=== PATIENT | female | born 1970 | race Two or more races ===

== ENCOUNTER 2017-06-29 17:56 | Emergency (ER) | payer BC, OTHER ==
[~2017-06-29] VITALS: Ht 149.9 cm; Wt 57.0 kg
[~2017-06-29 17:56] MED LIST: LOSA25TA5 PO
[2017-06-29 18:02] VITALS: BP 151/88
[2017-06-29] MEDS ORDERED: KETOROLAC 30 MG/1 ML ONE (19:27)
[2017-06-29] MEDS ORDERED: DIAZEPAM 5 MG TABLET ONE (19:27)
[2017-06-29] MEDS ORDERED: KETOROLAC 30 MG/1 ML IM ONE (19:30)
[2017-06-29] MEDS ORDERED: DIAZEPAM 5 MG TABLET PO ONE (19:30)
[2017-06-29] MEDS ORDERED: IBUPROFEN 200 MG TABLET PO ONE (20:00)
[2017-06-29] MEDS ORDERED: IBUPROFEN 200 MG TABLET ONE (20:36)
== END 2017-06-29 21:04 | disposition home or self-care (01) ==
LOC: ED 19:19
DX: S16.1XXA Strain of muscle, fascia and tendon at neck level, initial encounter (principal); J30.2 Other seasonal allergic rhinitis; X50.1XXA Overexertion from prolonged static or awkward postures, initial encounter; Y93.H1 Activity, digging, shoveling and raking; Y92.89 Other specified places as the place of occurrence of the external cause; Y99.8 Other external cause status
CPT/HCPCS: 93005; 99283

== ENCOUNTER → 2018-04-24 | Outpatient (CLI) | payer BC | END | disposition home or self-care (01) | LOC: RAD 16:55 | PROVIDERS: ATTEND Nurse Practitioner Family | DX: R10.2 Pelvic and perineal pain (principal) | CPT/HCPCS: 74018 ==

== ENCOUNTER 2018-06-14 05:21 | Emergency (ER) | payer BC ==
[~2018-06-14] VITALS: Ht 149.9 cm; Wt 57.4 kg
[~2018-06-14 05:21] MED LIST changes: -LOSA25TA5 PO; +LOSA25TA6 PO
[2018-06-14] MEDS ORDERED: ONDANSETRON ODT 4 MG ONE (06:00)
[2018-06-14] MEDS ORDERED: ACETAMINOPHEN 325 MG TABLET ONE (06:00)
[2018-06-14] MEDS ORDERED: ONDANSETRON ODT 4 MG PO ONE (06:00)
[2018-06-14] MEDS ORDERED: ACETAMINOPHEN 325 MG TABLET PO ONE (06:00)
[2018-06-14 06:15] LABS: BASOPHILS # (AUTO) 0.02 x10^3/uL (0-0.1); BASOPHILS % (AUTO) 0 % (0-1); EOSINOPHILS # (AUTO) 0.24 x10^3/uL (0-0.4); EOSINOPHILS % (AUTO) 3 % (1-7); LYMPHOCYTES % (AUTO) 26 % (22-44); MD NO; MEAN CORPUSCULAR HEMOGLOBIN 27.6 pg (27.0-34.8); MEAN CORPUSCULAR HGB CONC 33.9 g/dL (32.4-35.8); MEAN CORPUSCULAR VOLUME 81.3 fL (80-100); MONOCYTES # (AUTO) 0.64 x10^3/uL (0.2-0.8); MONOCYTES % (AUTO) 7 % (2-9); NEUTROPHILS # (AUTO) 6.06 x10^3/uL (1.8-6.8); NEUTROPHILS % (AUTO) 65 % (42-75); PLATELET COUNT 266 x10^3/uL (130-400); RED BLOOD COUNT 4.42 x10^6/uL (3.82-5.3); RED CELL DISTRIBUTION WIDTH 13.9 % (9.6-15.2)
[2018-06-14 06:26] LABS: ALANINE AMINOTRANSFERASE 30 U/L (12-78); ALBUMIN 3.9 g/dL (3.4-5.0); ANION GAP 9 mmol/L (5-15); CALCIUM 8.8 mg/dL (8.5-10.1); CHLORIDE 109 mmol/L (98-107); CREATININE 0.67 mg/dL (0.55-1.02)
[2018-06-14 06:31] LABS: ALKALINE PHOSPHATASE 101 U/L (45-117); BILIRUBIN,TOTAL 0.4 mg/dL (0.2-1.0); TOTAL PROTEIN 7.9 g/dL (6.4-8.2)
[2018-06-14 07:52] LABS: MICROSCOPIC INDICATED
[2018-06-14 08:02] LABS: CULTURE INDICATED? YES
[2018-06-14 08:10] VITALS: BP 108/57
== END 2018-06-14 08:38 | disposition home or self-care (01) ==
LOC: ED 08:15
DX: D25.9 Leiomyoma of uterus, unspecified (principal); J30.2 Other seasonal allergic rhinitis
CPT/HCPCS: 36415; 71046; 76830; 80053; 81001; 84703; 85025; 87086; 93005; 99285; Q0162

== ENCOUNTER 2019-02-19 15:53 | Emergency (ER) | payer BC ==
[~2019-02-19] VITALS: Ht 149.9 cm; Wt 57.7 kg
[~2019-02-19 15:53] MED LIST changes: +LOSA25TA25 PO; -LOSA25TA6 PO
--- NOTE | 2019-02-19 16:16 | NUR ---
PATIENT PRESENTS TO ED TODAY FOR FACIAL SWELLING, NAUSEA, BURNING CHEST PAINRADIATING TO LEFT ARM, AND "ITCHING" STARTING TODAY AT 1200, NADN. REPORTS STARTING AMLODIPINE 1.5 WEEKS AGO AND HAS BEEN DIZZY SINCE. ADVERTISING DISPLAY ROTATOR ON PATIENT, MD AT BEDSIDE, AWAITING ORDERS, CALL LIGHT WITHIN REACH.
[2019-02-19] MEDS ORDERED: LORA-439 PO (16:22)
[2019-02-19] MEDS ORDERED: AMLO10TA8 PO (16:22)
--- NOTE | 2019-02-19 16:24 | NUR ---
XRAY AT BEDSIDE.
[2019-02-19] MEDS ORDERED: DIPHENHYDRAMINE 25 MG CAPSULE ONE (16:29)
[2019-02-19] MEDS ORDERED: ASPIRIN 81 MG TABLET CHEW ONE (16:29)
[2019-02-19] MEDS ORDERED: ASPIRIN 81 MG TABLET CHEW PO ONE (16:30)
[2019-02-19] MEDS ORDERED: DIPHENHYDRAMINE 25 MG CAPSULE PO ONE (16:30)
[2019-02-19 16:36] LABS: BASOPHILS # (AUTO) 0.03 x10^3/uL (0-0.1); BASOPHILS % (AUTO) 0 % (0-1); EOSINOPHILS # (AUTO) 0.05 x10^3/uL (0-0.4); EOSINOPHILS % (AUTO) 1 % (1-7); LYMPHOCYTES % (AUTO) 25 % (22-44); MD NO; MEAN CORPUSCULAR HEMOGLOBIN 26.2 pg (27.0-34.8); MEAN CORPUSCULAR HGB CONC 32.4 g/dL (32.4-35.8); MEAN CORPUSCULAR VOLUME 80.7 fL (80-100); MEAN PLATELET VOLUME 8.7 fL (7.4-10.4); MONOCYTES # (AUTO) 0.66 x10^3/uL (0.2-0.8); MONOCYTES % (AUTO) 8 % (2-9); NEUTROPHILS # (AUTO) 5.35 x10^3/uL (1.8-6.8); NEUTROPHILS % (AUTO) 66 % (42-75); PLATELET COUNT 292 x10^3/uL (130-400); RED BLOOD COUNT 4.31 x10^6/uL (3.82-5.3); RED CELL DISTRIBUTION WIDTH 15.5 % (9.6-15.2)
[2019-02-19 16:46] LABS: ALANINE AMINOTRANSFERASE 61 U/L (12-78); ALBUMIN 3.9 g/dL (3.4-5.0); ANION GAP 7 mmol/L (5-15); CALCIUM 8.5 mg/dL (8.5-10.1); CHLORIDE 104 mmol/L (98-107); CREATININE 0.96 mg/dL (0.55-1.02)
[2019-02-19 16:51] LABS: ALKALINE PHOSPHATASE 122 U/L (45-117); BILIRUBIN,TOTAL 0.3 mg/dL (0.2-1.0); TOTAL PROTEIN 7.9 g/dL (6.4-8.2); TROPONIN I < 0.015 ng/mL (0.000-0.045)
--- NOTE | 2019-02-19 16:56 | NUR ---
RESULTS BACK, CHART UP FOR RECHECK.
--- NOTE | 2019-02-19 18:32 | NUR ---
Patient/Caregiver given discharge instructions and they have confirmed that they understand the instructions. Patient ambulatory with steady gait.
[2019-02-19 18:33] VITALS: BP 111/69
== END 2019-02-19 18:34 | disposition home or self-care (01) ==
LOC: ED 16:31
DX: R07.89 Other chest pain (principal); T46.1X5A Adverse effect of calcium-channel blockers, initial encounter; I10 Essential (primary) hypertension; Y92.89 Other specified places as the place of occurrence of the external cause
CPT/HCPCS: 36415; 71045; 80053; 84484; 84703; 85025; 93005; 99284; Q0163

== ENCOUNTER 2019-07-20 10:43 | Outpatient (CLI) | payer BC ==
[~2019-07-20 10:43] MED LIST changes: +AMLO10TA8 PO; +LORA-439 PO
[2019-07-20] MEDS ORDERED: HYDROCHLOROTH12.5 MG PO (12:00)
[2019-07-20] MEDS ORDERED: IRON PO (12:00)
[2019-07-20] MEDS ORDERED: IBUPROFEN PO (12:00)
[2019-07-20] MEDS ORDERED: CODEINE PO (12:00)
[2019-07-20] MEDS ORDERED: BENZ200C48 PO (12:00)
[2019-07-20] MEDS ORDERED: PROMETHAZINE PO (12:00)
[2019-07-20 12:04] LABS: BASOPHILS # (AUTO) 0.04 x10^3/uL (0-0.1); BASOPHILS % (AUTO) 1 % (0-1); EOSINOPHILS # (AUTO) 0.24 x10^3/uL (0-0.4); EOSINOPHILS % (AUTO) 4 % (1-7); LYMPHOCYTES # (AUTO) 1.96 x10^3/uL (1-3.4); LYMPHOCYTES % (AUTO) 31 % (22-44); MD NO; MEAN CORPUSCULAR HEMOGLOBIN 26.9 pg (27.0-34.8); MEAN CORPUSCULAR VOLUME 81.5 fL (80-100); MEAN PLATELET VOLUME 8.9 fL (7.4-10.4); MONOCYTES # (AUTO) 0.51 x10^3/uL (0.2-0.8); MONOCYTES % (AUTO) 8 % (2-9); NEUTROPHILS # (AUTO) 3.62 x10^3/uL (1.8-6.8); NEUTROPHILS % (AUTO) 57 % (42-75); PLATELET COUNT 281 x10^3/uL (130-400); RED BLOOD COUNT 4.69 x10^6/uL (3.82-5.3); RED CELL DISTRIBUTION WIDTH 14.8 % (9.6-15.2)
[2019-07-20 12:14] LABS: ALBUMIN 4.2 g/dL (3.4-5.0); ANION GAP 7 mmol/L (5-15); CALCIUM 8.6 mg/dL (8.5-10.1); CHLORIDE 109 mmol/L (98-107)
[2019-07-20 12:21] LABS: ALANINE AMINOTRANSFERASE 23 U/L (12-78); ALKALINE PHOSPHATASE 87 U/L (45-117); BILIRUBIN,TOTAL 0.3 mg/dL (0.2-1.0); TOTAL PROTEIN 8.4 g/dL (6.4-8.2)
== END 2019-07-20 23:59 | disposition home or self-care (01) ==
LOC: STAR 10:43
PROVIDERS: ATTEND Obstetrics & Gynecology
DX: Z01.818 Encounter for other preprocedural examination (principal); N94.6 Dysmenorrhea, unspecified; N92.0 Excessive and frequent menstruation with regular cycle; D25.9 Leiomyoma of uterus, unspecified; I44.0 Atrioventricular block, first degree
CPT/HCPCS: 36415; 80053; 84703; 85025; 93005

== ENCOUNTER 2019-07-27 10:43 | Inpatient (IN) | payer BC ==
[~2019-07-27] VITALS: Ht 149.9 cm; Wt 49.2 kg
[~2019-07-27 10:43] MED LIST changes: +BENZ200C48 PO; +CODEINE PO; +HYDROCHLOROTH12.5 MG PO; +IBUPROFEN PO; +IRON PO; +PROMETHAZINE PO
[2019-07-27] MEDS ORDERED: LACTATED RINGERS 1,000 ML IV SCH (11:09)
[2019-07-27] MEDS ORDERED: LIDOCAINE-MPF 1%, 2ML INFIL ONE (11:30)
[2019-07-27] MEDS ORDERED: MEPERIDINE/PF 25MG/ML,1ML IVPush PRN (11:30)
[2019-07-27] MEDS ORDERED: SCOPOLAMINE PATCH, 1.5MG PATCH.TD72 TD ONE (11:30)
[2019-07-27] MEDS ORDERED: HYDROcodone/APAP 7.5-325MG/15ML UDC PO PRN (11:30)
[2019-07-27] MEDS ORDERED: LABETALOL 5MG/ML, 20ML IV PRN (11:30)
[2019-07-27] MEDS ORDERED: ONDANSETRON 2MG/ML, 2ML IV PRN (11:30)
[2019-07-27] MEDS ORDERED: HYDROmorphone 2 MG/ML, 1ML IVPush PRN (11:30)
[2019-07-27] MEDS ORDERED: FENTANYL PF 100 MCG/2ML IV PRN (11:30)
[2019-07-27] MEDS ORDERED: EPHEDRINE 50 MG/ML, 1ML IVPush PRN (11:30)
[2019-07-27] MEDS: GABAPENTIN 300 MG CAPSULE PO ONE ×2 (11:30→11:32)
[2019-07-27] MEDS ORDERED: hydrALAzine 20 MG/ML, 1ML IV PRN (11:30)
[2019-07-27] MEDS: ACETAMINOPHEN 500 MG TABLET PO ONE ×2 (11:30→11:32)
[2019-07-27] MEDS ORDERED: PROMETHAZINE 25 MG/ML, 1ML IV PRN (11:30)
[2019-07-27] MEDS ORDERED: MIDAZOLAM 1 MG/ML, 2ML ONE (12:02)
[2019-07-27] MEDS ORDERED: FENTANYL PF 250 MCG/5ML ONE (12:02)
[2019-07-27] MEDS ORDERED: CEFAZOLIN 1,000 MG ONE (13:56)
[2019-07-27] MEDS ORDERED: GLYCOPYRROLATE 0.2MG/1ML, 5ML ONE (13:56)
[2019-07-27] MEDS ORDERED: NEOSTIGMINE 1 MG/ML, 10ML ONE (13:56)
[2019-07-27] MEDS ORDERED: ROCURONIUM 10 MG/ML,10ML ONE (13:56)
[2019-07-27] MEDS ORDERED: LIDOCAINE-MPF 2% ,5ML ONE (13:56)
[2019-07-27] MEDS ORDERED: DEXAMETHASONE 4 MG/ML, 1ML ONE (13:56)
[2019-07-27] MEDS ORDERED: KETOROLAC 30 MG/1 ML ONE (14:05)
[2019-07-27] MEDS ORDERED: BUPIVACAINE/PF 0.25% ONE ×2 (14:20)
[2019-07-27] MEDS ORDERED: EPINEPHRINE 1 MG/ML, 1ML ONE (14:28)
[2019-07-27] MEDS ORDERED: FLUORESCEIN SODIUM 500 MG/5 ML ONE (14:30)
[2019-07-27] MEDS ORDERED: ONDANSETRON 2MG/ML, 2ML ONE (14:43)
[2019-07-27] MEDS ORDERED: FENTANYL PF 100 MCG/2ML ONE (16:13)
[2019-07-27] MEDS ORDERED: HYDROmorphone 1 MG/ML, 1ML VIAL ONE (16:14)
[2019-07-27 18:54] VITALS: BP 156/80
[2019-07-27] MEDS ORDERED: KETOROLAC 30 MG/1 ML IV PRN (19:00)
[2019-07-27] MEDS ORDERED: BISACODYL 10 MG SUPP PR PRN (19:00)
[2019-07-27] MEDS ORDERED: ACETAMINOPHEN 650 MG SUPP PR PRN (19:00)
[2019-07-27] MEDS ORDERED: ACETAMINOPHEN 325 MG TABLET PO PRN (19:00)
[2019-07-27] MEDS ORDERED: morphine SULFATE 10 MG/ML, 1ML IV PRN (19:00)
[2019-07-27 19:14] LABS: MEAN CORPUSCULAR HEMOGLOBIN 27.4 pg (27.0-34.8); MEAN CORPUSCULAR HGB CONC 32.9 g/dL (32.4-35.8); MEAN CORPUSCULAR VOLUME 83.4 fL (80-100); MEAN PLATELET VOLUME 8.8 fL (7.4-10.4); PLATELET COUNT 248 x10^3/uL (130-400); RED BLOOD COUNT 3.83 x10^6/uL (3.82-5.3); RED CELL DISTRIBUTION WIDTH 14.9 % (9.6-15.2)
[2019-07-27 19:39] LABS: BAND#(MANUAL) 2.08 x10^3/uL; BANDS%(MANUAL) 13 % (0-7); LYMPH#(MANUAL) 0.32 x10^3/uL (1-3.4); LYMPHS% (MANUAL) 2 % (22-44); MD YES; SEGS% (MANUAL) 85 % (42-75)
[2019-07-27 19:40] LABS: <PLATELET ESTIMATE> ADEQUATE; <PLT MORPHOLOGY> NORMAL PLT MORPH; <RBC MORPHOLOGY> NORMAL
[2019-07-27] MEDS: SIMETHICONE 80 MG CHEW TAB PO SCH (22:21)
[2019-07-27] MEDS: OXYcodone/APAP 5/325MG TABLET PO PRN (22:21)
[2019-07-27] MEDS: DOCUSATE 100 MG CAPSULE PO SCH (22:21)
[2019-07-27] MEDS: SENNA/DOCUSATE TABLET PO SCH (22:22)
[2019-07-27] MEDS: D5%-LACTATED RINGERS 1,000 ML IV SCH (22:22)
[2019-07-28 00:19] VITALS: BP 135/73
[2019-07-28 04:30] VITALS: BP 125/68
[2019-07-28 05:19] LABS: BASOPHILS # (AUTO) 0.02 x10^3/uL (0-0.1); BASOPHILS % (AUTO) 0 % (0-1); EOSINOPHILS % (AUTO) 0 % (1-7); LYMPHOCYTES % (AUTO) 8 % (22-44); MD NO; MEAN CORPUSCULAR HEMOGLOBIN 27.1 pg (27.0-34.8); MEAN CORPUSCULAR HGB CONC 32.8 g/dL (32.4-35.8); MEAN CORPUSCULAR VOLUME 82.5 fL (80-100); MEAN PLATELET VOLUME 8.9 fL (7.4-10.4); MONOCYTES # (AUTO) 1.02 x10^3/uL (0.2-0.8); MONOCYTES % (AUTO) 8 % (2-9); NEUTROPHILS # (AUTO) 11.01 x10^3/uL (1.8-6.8); NEUTROPHILS % (AUTO) 84 % (42-75); PLATELET COUNT 241 x10^3/uL (130-400); RED BLOOD COUNT 3.62 x10^6/uL (3.82-5.3); RED CELL DISTRIBUTION WIDTH 14.8 % (9.6-15.2)
[2019-07-28 05:28] LABS: CHLORIDE 109 mmol/L (98-107)
[2019-07-28 05:34] LABS: ALANINE AMINOTRANSFERASE 22 U/L (12-78); ALBUMIN 3.3 g/dL (3.4-5.0); ALKALINE PHOSPHATASE 66 U/L (45-117); ANION GAP 5 mmol/L (5-15); BILIRUBIN,TOTAL 0.6 mg/dL (0.2-1.0); CALCIUM 8.5 mg/dL (8.5-10.1); CREATININE 0.69 mg/dL (0.55-1.02); TOTAL PROTEIN 6.7 g/dL (6.4-8.2)
[2019-07-28] MEDS: D5%-LACTATED RINGERS 1,000 ML IV SCH ×3 (06:13→22:00)
[2019-07-28 07:32] VITALS: BP 128/71
[2019-07-28] MEDS: DOCUSATE 100 MG CAPSULE PO SCH ×2 (08:10→21:42)
[2019-07-28] MEDS: SODIUM CHLORIDE FLUSH 10ML SYR IVF SCH ×2 (08:10→21:00)
[2019-07-28] MEDS: SIMETHICONE 80 MG CHEW TAB PO SCH ×3 (08:17→21:00)
[2019-07-28 13:43] VITALS: BP 132/68
[2019-07-28] MEDS: OXYcodone/APAP 5/325MG TABLET PO PRN ×2 (15:40→21:42)
[2019-07-28] MEDS: SENNA/DOCUSATE TABLET PO SCH (21:00)
[2019-07-28 21:56] VITALS: BP 120/67
[2019-07-29 04:21] VITALS: BP 117/60
[2019-07-29] MEDS: D5%-LACTATED RINGERS 1,000 ML IV SCH (05:13)
[2019-07-29] MEDS: OXYcodone/APAP 5/325MG TABLET PO PRN (07:39)
[2019-07-29] MEDS: SIMETHICONE 80 MG CHEW TAB PO SCH (07:39)
[2019-07-29] MEDS: DOCUSATE 100 MG CAPSULE PO SCH (07:39)
[2019-07-29 09:30] VITALS: BP 119/72
[2019-07-29] MEDS ORDERED: OXYC-302 PO (09:32)
[2019-07-29] MEDS ORDERED: DOCU-131 PO (09:34)
[2019-07-29] MEDS ORDERED: IRON1TAB60 PO (09:35)
== END 2019-07-29 10:30 | disposition home or self-care (01) | DRG 743 ==
LOC: ORIP 10:43 → 4NE 17:39 → DCLOUNGE 07-29 10:20
PROVIDERS: ADMIT Obstetrics & Gynecology; ATTEND Obstetrics & Gynecology
PROC: 0UT70ZZ Resection of Bilateral Fallopian Tubes, Open Approach (ICD-10-PCS; 2019-07-27)
PROC: 3E0T3BZ Introduction of Anesthetic Agent into Peripheral Nerves and Plexi, Percutaneous Approach (ICD-10-PCS; 2019-07-27)
PROC: 0UT90ZZ Resection of Uterus, Open Approach (ICD-10-PCS; principal; 2019-07-27 12:30)
DX: D25.9 Leiomyoma of uterus, unspecified (principal); D64.9 Anemia, unspecified; I10 Essential (primary) hypertension; N92.0 Excessive and frequent menstruation with regular cycle; K66.0 Peritoneal adhesions (postprocedural) (postinfection); N85.4 Malposition of uterus; N94.6 Dysmenorrhea, unspecified; Z87.74 Personal history of (corrected) congenital malformations of heart and circulatory system
CPT/HCPCS: 36415; J3490; J7121; 80053; 85025; 86850; 86900; 88307; G0378; J0171; J0690; J1100; J1170; J1885; J2250; J2405; J2710; J3010; J2270; J7120

== ENCOUNTER 2019-10-22 16:27 | Emergency (ER) | payer BC ==
[~2019-10-22] VITALS: Ht 147.3 cm; Wt 53.0 kg
[~2019-10-22 16:27] MED LIST changes: +DOCU-131 PO; +IRON1TAB60 PO; +OXYC-302 PO
--- NOTE | 2019-10-22 16:41 | NUR ---
Pt to room from [facility], ambulatory with steady gait.
[2019-10-22 17:07] VITALS: BP 156/63
--- NOTE | 2019-10-22 17:13 | NUR ---
First contact with pt. Pt c/o numbness and tingling in her R UE, and L shoulder x2 weeks. Pt denies known injury. Pt states also one episode of sharp pain in her L chest last night when she was at work that resolved after she took an aspirin and rested. Pt positioned for comfort in bed with warm blanket. Continuous heart, oxygen and BP monitors applied, all safety measures observed.
--- NOTE | 2019-10-22 18:58 | NUR ---
REPORT FROM LEVI RASCON, ASSUMING CARE OF PT AT THIS TIME
--- NOTE | 2019-10-22 18:58 | NUR ---
Pt resting in bed, KIERRA. Report to Annette RASCON.
--- NOTE | 2019-10-22 19:11 | NUR ---
Patient/Caregiver given discharge instructions and they have confirmed that they understand the instructions. Patient ambulatory with steady gait.
== END 2019-10-22 19:21 | disposition home or self-care (01) ==
LOC: ED 19:10
DX: G56.01 Carpal tunnel syndrome, right upper limb (principal); I10 Essential (primary) hypertension
CPT/HCPCS: 72050; 93005; 99283